=== PATIENT | male | born 1955 | race Caucasian/White ===

== ENCOUNTER 2018-07-24 05:45 | Inpatient (IN) | payer OTHER ==
[2018-07-24] MEDS ORDERED: DESFLURANE 15 MIN (07:00)
[2018-07-24] MEDS ORDERED: HYDROmorphONE 1 MG/5 ML IV SYRINGE IV (08:30)
[2018-07-24] MEDS ORDERED: METOCLOPRAMIDE 10 MG INJ IV (08:30)
[2018-07-24] MEDS ORDERED: ONDANSETRON 4 MG INJ IV (08:30)
[2018-07-24] MEDS ORDERED: MEPERIDINE 25 MG INJ IV (08:30)
[2018-07-24] MEDS ORDERED: FENTAnyl 50 MCG/ML VIAL IV ×3 (08:30)
[2018-07-24] MEDS ORDERED: OXYCODONE/ACETAMINOPHEN (5/325) TAB PO (08:30)
[2018-07-24] MEDS ORDERED: ALBUTEROL 0.083% (NEB) 2.5 MG/3 ML AMP HHN (08:30)
[2018-07-24] MEDS ORDERED: DIPHENHYDRAMINE 50 MG INJ IV (08:30)
[2018-07-24] MEDS: BUPIVACAINE 0.25%/EPI (SDV) 30 ML INJ (08:34)
[2018-07-24] MEDS: HEPARIN 1000 UNITS/ML 10 ML INJ (08:34)
[2018-07-24] MEDS: CEFAZOLIN 1 GM INJ (08:35)
[2018-07-24] MEDS: SURGIFOAM POWDER 1 GM KIT ×2 (08:35→11:42)
[2018-07-24] MEDS: POLYMYXIN/BACITRACIN 1L IRRIG (08:36)
[2018-07-24] MEDS: THROMBIN (BOVINE) 5,000 UNIT VIAL TP (08:36)
[2018-07-24] MEDS: GELATIN SIZE 100 SPONGE ×3 (09:46→12:27)
[2018-07-24] MEDS ORDERED: THROMBIN (BOVINE) 5,000 UNIT VIAL TP ×4 (10:18→12:18)
[2018-07-24] MEDS ORDERED: GELATIN SIZE 100 SPONGE (11:11)
[2018-07-24] MEDS ORDERED: SURGIFOAM POWDER 1 GM KIT (11:24)
[2018-07-24] MEDS ORDERED: HYDROCODONE/APAP (5/325) TAB PO (13:00)
[2018-07-24] MEDS ORDERED: NALOXONE (0.4 MG/ML) INJ IV (13:00)
[2018-07-24] MEDS ORDERED: ACETAMINOPHEN 325 MG TAB PO (13:00)
[2018-07-24] MEDS ORDERED: NACL 0.9% 3 ML SYG IV (13:00)
[2018-07-24] MEDS ORDERED: MEPERIDINE 25 MG INJ (13:26)
[2018-07-24] MEDS: ONDANSETRON 4 MG INJ IV (13:34)
[2018-07-24] MEDS: MEPERIDINE 25 MG INJ IV (13:36)
[2018-07-24] MEDS: HYDROmorphONE 1 MG/5 ML IV SYRINGE IV ×2 (13:41→13:49)
[2018-07-24] MEDS: HYDROmorphONE 0.2 MG/ML PCA IV (13:54)
[2018-07-24] MEDS: DEXTROSE 5%-0.45% NACL 1,000 ML IV ×3 (15:15→23:30)
[2018-07-24] MEDS: PROCHLORPERAZINE 10 MG TAB PO (15:47)
[2018-07-24] MEDS: CEFAZOLIN 1 GM/50 ML (PMX) 50 ML IVPB ×2 (17:47→23:30)
[2018-07-24 18:53] LABS: HEMATOCRIT 34.2 % (42.0-52.0); HEMOGLOBIN 11.4 g/dl (14.0-18.0)
[2018-07-24] MEDS: TAMSULOSIN (SR) 0.4 MG CAP PO (20:21)
[2018-07-24] MEDS: CEPASTAT LOZENGE MT (20:21)
[2018-07-25] MEDS ORDERED: MIDAZOLAM 1 MG/ML 2 ML INJ (00:09)
[2018-07-25] MEDS ORDERED: SUCCINYLCHOLINE CHLORIDE 100 MG/5 ML SYG IV (00:10)
[2018-07-25] MEDS ORDERED: SUGAMMADEX SODIUM 200 MG/2 ML VIAL IV (00:10)
[2018-07-25] MEDS ORDERED: CEFAZOLIN 1 GM INJ (00:10)
[2018-07-25] MEDS ORDERED: ROCURONIUM 50 MG INJ (00:10)
[2018-07-25] MEDS ORDERED: PROPOFOL 20 ML (00:10)
[2018-07-25] MEDS ORDERED: FENTAnyl 50 MCG/ML VIAL ×2 (00:10)
[2018-07-25] MEDS ORDERED: LIDOCAINE 100 MG SYRINGE (00:10)
[2018-07-25] MEDS: CEFAZOLIN 1 GM/50 ML (PMX) 50 ML IVPB ×2 (05:32→12:15)
[2018-07-25 05:47] LABS: HEMOGLOBIN 9.6 g/dl (14.0-18.0)
[2018-07-25 06:02] LABS: ANION GAP 2 (5-13); BLOOD UREA NITROGEN 12 mg/dl (7-20); CALCIUM 7.8 mg/dl (8.4-10.2); CARBON DIOXIDE 28 mmol/L (21-31); CHLORIDE 107 mmol/L (97-110); CREATININE 0.78 mg/dl (0.61-1.24); Estimated GFR > 60 mL/min (>60); GLUCOSE 122 mg/dl (70-220); SODIUM 137 mmol/L (135-144)
[2018-07-25] MEDS: DOCUSATE SODIUM 100 MG CAP PO ×2 (08:49→20:16)
[2018-07-25] MEDS: DEXTROSE 5%-0.45% NACL 1,000 ML IV (09:32)
[2018-07-25] MEDS: HYDROmorphONE 0.2 MG/ML PCA IV (09:37)
[2018-07-25] MEDS: AL HYDROX/MG HYDROX/SIMETH 30 ML CUP PO (14:01)
[2018-07-25] MEDS: HYDROCODONE/APAP (5/325) TAB PO (19:20)
[2018-07-25] MEDS: TAMSULOSIN (SR) 0.4 MG CAP PO (20:16)
[2018-07-26] MEDS: HYDROCODONE/APAP (5/325) TAB PO ×4 (01:15→15:05)
[2018-07-26 05:32] LABS: ADD MAN DIFF? NO
[2018-07-26 05:38] LABS: BASOPHILS % 0.3 % (0.0-2.0); EOSINOPHILS # 0.1 10^3/ul (0.0-0.5); EOSINOPHILS % 0.8 % (0.0-7.0); HEMOGLOBIN 9.4 g/dl (14.0-18.0); LYMPHOCYTES # 1.4 10^3/ul (0.8-2.9); MEAN CORPUSCULAR HEMOGLOBIN 30.5 pg (29.0-33.0); MEAN CORPUSCULAR HGB CONC 32.4 g/dl (32.0-37.0); MEAN CORPUSCULAR VOLUME 94.2 fl (82.0-101.0); MEAN PLATELET VOLUME 9.9 fl (7.4-10.4); MONOCYTE # 0.9 10^3/ul (0.3-0.9); MONOCYTES % 12.9 % (0.0-11.0); NEUTROPHIL # 4.6 10^3/ul (1.6-7.5); NEUTROPHILS % 65.7 % (39.0-77.0); PLATELET COUNT 184 10^3/UL (140-415); RED BLOOD COUNT 3.08 10^6/ul (4.70-6.10); RED CELL DISTRIBUTION WIDTH 12.5 % (11.5-14.5)
[2018-07-26 05:38] LABS: WHITE BLOOD COUNT 7.1 10^3/ul (4.8-10.8)
[2018-07-26 06:00] LABS: ANION GAP 4 (5-13); BLOOD UREA NITROGEN 10 mg/dl (7-20); CALCIUM 8.5 mg/dl (8.4-10.2); CARBON DIOXIDE 30 mmol/L (21-31); CHLORIDE 105 mmol/L (97-110); CREATININE 0.77 mg/dl (0.61-1.24); Estimated GFR > 60 mL/min (>60); GLUCOSE 94 mg/dl (70-220); MAGNESIUM 1.9 mg/dl (1.7-2.5); PHOSPHORUS 2.7 mg/dl (2.5-4.9); POTASSIUM 4.3 mmol/L (3.5-5.1); SODIUM 139 mmol/L (135-144)
[2018-07-26] MEDS: DOCUSATE SODIUM 100 MG CAP PO (09:17)
== END 2018-07-26 15:45 | disposition home or self-care (01) | DRG 517 ==
LOC: REC 05:45 → MS1 14:25
PROC: 01NB0ZZ Release Lumbar Nerve, Open Approach (ICD-10-PCS; principal; 2018-07-24 07:30)
DX: M48.062 Spinal stenosis, lumbar region with neurogenic claudication (principal); N40.0 Benign prostatic hyperplasia without lower urinary tract symptoms; M48.07 Spinal stenosis, lumbosacral region; Z96.651 Presence of right artificial knee joint
CPT/HCPCS: 72110; 80048; 83735; 84100; 85014; 85018; 85025; 86850; 86900; 86901; 87086; 97116; 97161; 97530